=== PATIENT | female | born 1965 | race Caucasian/White ===

== ENCOUNTER → 2018-07-09 | Outpatient (CLI) | payer OTHER | LOC: FIMAGING 13:40 | PROVIDERS: ATTEND Nurse Practitioner Family | DX: Z12.31 Encounter for screening mammogram for malignant neoplasm of breast (principal); Z13.820 Encounter for screening for osteoporosis; E03.9 Hypothyroidism, unspecified; Z78.0 Asymptomatic menopausal state; Z79.890 Hormone replacement therapy ==